=== PATIENT | female | born 1985 | race Two or more races ===

== ENCOUNTER 2025-02-18 06:12 | Inpatient (IN) ==
[2025-02-18] MEDS: PITOCIN ONE (06:42)
[2025-02-18] MEDS: REGLAN INJ 10 MG VIAL ONE (06:42)
[2025-02-18] MEDS: ZOFRAN INJ 4 MG VIAL ONE (06:42)
[2025-02-18] MEDS: PEPCID 20 MG VIAL ONE (06:45)
[2025-02-18] MEDS ORDERED: ANCEF VIAL 1 GRAM ONE (06:49)
[2025-02-18] MEDS ORDERED: LR 1,000 ML IV 1,000 ML IV ONE (06:50)
[2025-02-18] MEDS: LR 1,000 ML IV 2,000 ML IV PRN (07:00)
[2025-02-18] MEDS: MARCAINE SPINAL ONE (07:01)
[2025-02-18] MEDS: NS 100 ML IV 100 ML ONE (07:01)
[2025-02-18] MEDS: LR 1,000 ML IV 1,000 ML IV ONE ×2 (07:01→07:25)
[2025-02-18] MEDS: PRECEDEX INJ VIAL ONE (07:01)
[2025-02-18] MEDS: ANCEF VIAL 1 GRAM IVP ONE (07:02)
[2025-02-18] MEDS: REGLAN INJ 10 MG VIAL IVP PRN (07:10)
[2025-02-18] MEDS: PEPCID 20 MG VIAL IVP PRN (07:10)
[2025-02-18] MEDS: ZOFRAN INJ 4 MG VIAL IVP PRN (07:10)
[2025-02-18] MEDS: ANCEF VIAL 1 GRAM IV PRN (07:15)
[2025-02-18] MEDS: TORADOL 30 MG VIAL ONE (07:24)
[2025-02-18] MEDS: OFIRMEV IV 1000 MG VIAL 1,000 MG/100 ML VIAL IV ONE (07:25)
[2025-02-18] MEDS: EPHEDRINE SULFATE INJ ONE (07:48)
[2025-02-18] MEDS ORDERED: ZOFRAN INJ 4 MG VIAL IVP PRN (08:04)
[2025-02-18] MEDS ORDERED: DILAUDID INJ IVP PRN ×2 (08:04→09:15)
[2025-02-18] MEDS ORDERED: BARHEMSYS INJ IVP PRN (08:04)
[2025-02-18] MEDS ORDERED: BENADRYL INJ 50 MG VIAL IVP PRN (08:04)
[2025-02-18] MEDS: TORADOL 30 MG VIAL IVP PRN (08:13)
[2025-02-18] MEDS: EPHEDRINE SULFATE INJ IVP PRN (08:15)
[2025-02-18] MEDS ORDERED: PITOCIN IVP PRN (08:26)
[2025-02-18] MEDS: OFIRMEV IV 1000 MG VIAL 1,000 MG/100 ML VIAL IV PRN (08:29)
[2025-02-18] MEDS ORDERED: MOTRIN TAB 800 MG PO PRN (08:41)
[2025-02-18] MEDS ORDERED: MYLICON TAB 80 MG CHEW PO PRN (08:41)
[2025-02-18] MEDS ORDERED: PERCOCET TAB 5/325 MG PO PRN (08:41)
[2025-02-18] MEDS ORDERED: TORADOL 30 MG VIAL IVP PRN (08:41)
[2025-02-18] MEDS ORDERED: REGLAN INJ 10 MG VIAL IVP PRN (08:41)
[2025-02-18] MEDS: TORADOL 30 MG VIAL IVP SCH (13:07)
[2025-02-18] MEDS: COLACE CAP 100 MG PO SCH (13:08)
[2025-02-18] MEDS: PRENATAL PLUS PO SCH (13:08)
[2025-02-18] MEDS: OXYTOCIN 20 UNIT/1,000 ML-NS 20 UNIT/1,000 ML PLAST..BAG IV SCH (13:12)
[2025-02-18] MEDS: PERCOCET TAB 5/325 MG PO PRN (17:40)
[2025-02-18] MEDS: ZOFRAN INJ 4 MG VIAL IVP SCH (18:18)
[2025-02-19] MEDS: PERCOCET TAB 5/325 MG PO PRN (10:48)
[2025-02-19] MEDS: MOTRIN TAB 800 MG PO SCH (13:35)
[2025-02-20 05:00] VITALS: PULSE 85; O2SAT 97
[2025-02-20 07:57] VITALS: BP 142/84; RESP 19; TEMP 98.2
[2025-02-20] MEDS: NS 100 ML IV 100 ML with VENOFER 200 MG IV ONE (08:41)
== END 2025-02-20 12:20 | disposition home or self-care (01) | DRG 788 ==
LOC: LD 06:12 → MED/SURG 09:11
PROVIDERS: ADMIT Obstetrics & Gynecology Obstetrics; ATTEND Obstetrics & Gynecology Obstetrics
DX: Z37.0 Single live birth; N85.8 Other specified noninflammatory disorders of uterus; Z3A.39 39 weeks gestation of pregnancy; O34.211 Maternal care for low transverse scar from previous cesarean delivery; O64.8XX0 Obstructed labor due to other malposition and malpresentation, not applicable or unspecified; Z55.8 Other problems related to education and literacy